=== PATIENT | female | born 1985 | race Caucasian/White ===

== ENCOUNTER → 2017-03-04 | Outpatient (REF) | payer OTHER ==
[~2017-03-04] MED LIST: ACET50TA PO; DOCU10CA PO; IBUP80TA PO; MOM30SS PO; PRIL20CA9 PO; TUMS500C PO; VITAPRTA PO
== END ==
LOC: M LAB REF 13:08
PROVIDERS: ATTEND Physician Assistant Medical
DX: N39.0 Urinary tract infection, site not specified (principal)

== ENCOUNTER 2017-05-02 14:21 | Emergency (ER) | payer OTHER ==
[~2017-05-02] VITALS: Ht 167.6 cm; Wt 113.6 kg
[~2017-05-02 14:21] MED LIST changes: -ADJU7MIS XX; -NAPR500T PO; -ORTHTAB15 PO
[2017-05-02 14:22] VITALS: BP 123/69
[2017-05-02] MEDS ORDERED: ORTHTAB15 PO (14:38)
[2017-05-02] MEDS ORDERED: NORCO, ANEXSIA 5/325MG TABLET (HYDROcodone/ACETAMINOPHEN) PO ONE (16:00)
[2017-05-02] MEDS ORDERED: NAPR500T PO (16:59)
[2017-05-02] MEDS ORDERED: ADJU7MIS XX (17:02)
--- NOTE | 2017-05-02 17:17 | REP ---
Right os calcis: Two views: History: Pain and swelling. Question spur. Findings: Axial and lateral views demonstrate plantar and Achilles calcaneal spurring. No erosive changes seen. Bones, joints, and soft tissues are otherwise unremarkable. Impression: Heel spurs. No erosive change seen. Signed by lEbert Souza MD 05/02/2017 05:48 P
== END 2017-05-02 17:15 | disposition home or self-care (01) ==
LOC: M ED 14:21
DX: M77.31 Calcaneal spur, right foot (principal)

== ENCOUNTER → 2017-05-02 | Outpatient (REF) | payer OTHER ==
[~2017-05-02] MED LIST changes: +ADJU7MIS XX; +NAPR500T PO; +ORTHTAB15 PO
== END ==
LOC: M LAB REF 18:31
PROVIDERS: ATTEND Advanced Practice Midwife
DX: Z12.4 Encounter for screening for malignant neoplasm of cervix (principal)

== ENCOUNTER 2017-09-13 10:06 | Emergency (ER) | payer OTHER ==
[2017-09-13] MEDS: BENZONATATE 100 MG CAP PO (10:30)
[2017-09-13] MEDS: IPRATROPIUM 0.5MG/ALBUTEROL 2.5MG INH SOL UD 3ML (DUONEB)(J7620) NEB (10:41)
== END 2017-09-13 11:46 | disposition home or self-care (01) ==
LOC: M ED 10:06
DX: J18.1 Lobar pneumonia, unspecified organism (principal); F43.10 Post-traumatic stress disorder, unspecified; F31.9 Bipolar disorder, unspecified; F84.0 Autistic disorder
CPT/HCPCS: 71020

== ENCOUNTER → 2018-04-15 | Outpatient (CLI) | payer OTHER | LOC: M RAD 06:12 | DX: Z32.01 Encounter for pregnancy test, result positive (principal) | CPT/HCPCS: 76801 ==

== ENCOUNTER → 2018-07-29 | Outpatient (CLI) | payer OTHER ==
[2018-07-29 17:51] LABS: HCG, SERUM QUANTITATIVE < 1.0 MIU/ML
== END ==
LOC: M SMT 13:48
DX: O20.0 Threatened abortion (principal)
CPT/HCPCS: 84702

== ENCOUNTER 2019-11-25 11:12 | Emergency (ER) | payer OTHER ==
[~2019-11-25] VITALS: Ht 167.6 cm; Wt 121.1 kg
[~2019-11-25 11:12] MED LIST changes: -ACET50TA PO; +ADJU7MIS XX; +IBUP-1114 PO; +MAPA500T2 PO; +NAPR-837 PO; +ORTH1TAB9 PO; +PRED10TA2 PO; +TESS100C PO; +VENTAER IN; +ZITHTAB PO
[2019-11-25] MEDS ORDERED: PREN29TA4 PO (11:17)
[2019-11-25 12:05] LABS: BASO % 0.3 % (0.0-1.0); EOS % 0.4 % (0.0-3.0); HEMATOCRIT 40.6 % (36.0-47.0); HEMOGLOBIN 13.8 g/dl (12.0-15.5); LYMPH % 25.4 % (24.0-44.0); MEAN CORPUSCULAR HEMOGLOBIN 32.7 pg (27.0-33.0); MEAN CORPUSCULAR VOLUME 96.2 fl (80.0-96.0); MONO # 0.4 10^3/uL (0.0-0.8); MONO % 4.7 % (0.0-5.0); NEUTROPHILS # 5.3 10^3/uL (1.5-8.5); NEUTROPHILS % 68.9 % (36.0-66.0); PLATELET COUNT, AUTOMATED 277 10^3/uL (150-450); RED BLOOD COUNT 4.22 10^6/uL (4.00-5.40); WHITE BLOOD COUNT 7.7 10^3/uL (4.0-10.0)
[2019-11-25 12:41] LABS: BLOOD UREA NITROGEN 11 MG/DL (7-18); CALCIUM LEVEL 9.5 MG/DL (8.5-10.1); CARBON DIOXIDE LEVEL 26 MEQ/L (21-32); CHLORIDE LEVEL 108 MEQ/L (98-107); CREATININE FOR GFR 0.75 MG/DL (0.55-1.30); GLOMERULAR FILTRATION RATE > 60.0 (>60); GLUCOSE, FASTING 103 MG/DL (70-100); HCG, SERUM QUANTITATIVE 354 MIU/ML; POTASSIUM SERUM 3.5 MEQ/L (3.5-5.1); SODIUM LEVEL 140 MEQ/L (136-145)
--- NOTE | 2019-11-25 13:22 | REP ---
Emergency first trimester obstetric sonography: History: Vaginal bleeding. 6 weeks 6 days by dates. Findings: Transabdominal and transvaginal scanning are performed. Uterine dimensions are 12.3 x 5.9 x 7.7 cm. Endometrial stripe is 2.2 cm thick. There is a gestational sac like structure in the endometrium without identifiable yolk sac or embryonic pole. By mean sac size diameter of 4.3 mm this would correspond with a 5 week 1 day gestational age estimate. No cul-de-sac fluid is seen. The left ovary measures 2.5 x 1.5 x 1.9 cm with normal Doppler flow and a normal appearance. The right ovary measures 5.1 x 2.6 x 3.4 cm. It has a normal appearing Doppler flow. There is a 4.3 x 2.3 x 3.2 cm anechoic cyst in the right ovary. No cul-de-sac fluid. Impression: Nonspecific findings. A gestational sac like structure 5 weeks 1 day size is seen in the endometrium without yolk sac or embryonic pole. viability cannot be confirmed. Clinical and possibly sonographic followup is advised. There is a 4.3 cm simple cyst in the right ovary. Electronically Signed by Elbert Souza MD 11/25/2019 04:50 P
[2019-11-25 13:46] VITALS: BP 138/97
== END 2019-11-25 13:48 | disposition home or self-care (01) ==
LOC: M ED 11:12
DX: O20.0 Threatened abortion (principal); O36.80X0 Pregnancy with inconclusive fetal viability, not applicable or unspecified; O34.81 Maternal care for other abnormalities of pelvic organs, first trimester; N83.291 Other ovarian cyst, right side; O99.341 Other mental disorders complicating pregnancy, first trimester; F43.10 Post-traumatic stress disorder, unspecified; F84.0 Autistic disorder; F31.9 Bipolar disorder, unspecified; Z3A.01 Less than 8 weeks gestation of pregnancy

== ENCOUNTER → 2019-11-27 | Outpatient (CLI) | payer OTHER ==
[~2019-11-27] MED LIST changes: +PREN29TA4 PO
== END ==
LOC: M LAB 10:01
PROVIDERS: ATTEND Advanced Practice Midwife
DX: O20.0 Threatened abortion (principal)

== ENCOUNTER → 2020-01-27 | Outpatient (REF) | payer OTHER | LOC: M PLALAB 12:10 | PROVIDERS: ATTEND Obstetrics & Gynecology | DX: Z32.01 Encounter for pregnancy test, result positive (principal) ==

== ENCOUNTER → 2020-02-10 | Outpatient (REF) | payer OTHER | LOC: M PLALAB 09:16 | PROVIDERS: ATTEND Obstetrics & Gynecology | DX: Z32.01 Encounter for pregnancy test, result positive (principal) ==

== ENCOUNTER → 2020-02-12 | Outpatient (CLI) | payer OTHER | LOC: M PLALAB 09:29 | PROVIDERS: ATTEND Obstetrics & Gynecology | DX: Z32.01 Encounter for pregnancy test, result positive (principal) ==

== ENCOUNTER → 2020-02-24 | Outpatient (REF) | payer OTHER ==
[2020-02-24 11:48] LABS: HEMATOCRIT 37.3 % (36.0-47.0); HEMOGLOBIN 12.7 g/dl (12.0-15.5); MEAN CORPUSCULAR HEMOGLOBIN 32.2 pg (27.0-33.0); MEAN CORPUSCULAR VOLUME 94.4 fl (80.0-96.0); PLATELET COUNT, AUTOMATED 255 10^3/uL (150-450); RED BLOOD COUNT 3.95 10^6/uL (4.00-5.40); WHITE BLOOD COUNT 6.5 10^3/uL (4.0-10.0)
[2020-02-24 12:42] LABS: HEPATITIS C VIRUS ABY INDEX 0.2 INDEX (<0.8); HIV 1&2 SCREEN CENTAUR NEGATIVE (NEGATIVE)
[2020-02-24 13:22] LABS: CHLAMYDIA DNA AMPLIFICATION NEGATIVE (NEGATIVE); GC DNA AMPLIFICATION NEGATIVE (NEGATIVE)
== END ==
LOC: M PLALAB 09:07
PROVIDERS: ATTEND Obstetrics & Gynecology
DX: Z3A.01 Less than 8 weeks gestation of pregnancy (principal)

== ENCOUNTER → 2020-03-25 | Outpatient (CLI) | payer OTHER ==
[~2020-03-25] MED LIST changes: +ESGI1TAB PO; +OMEP-218 PO
== END ==
LOC: M PLALAB 14:33
PROVIDERS: ATTEND Advanced Practice Midwife
DX: Z34.81 Encounter for supervision of other normal pregnancy, first trimester (principal); Z3A.00 Weeks of gestation of pregnancy not specified

== ENCOUNTER → 2020-05-16 | Outpatient (CLI) | payer OTHER ==
--- NOTE | 2020-06-10 15:02 | REP ---
COMPLETE OBSTETRICAL ULTRASOUND CLINICAL: Anatomical evaluation. TECHNIQUE: Transabdominal obstetrical ultrasound with color Doppler evaluation. COMPARISON: 11/25/2019 FINDINGS: Ultrasound examination demonstrates single live intrauterine in breech presentation. motion was identified by technologist. heart rate equals 140 beats per minute. Placenta noted posterofundally and grade 1 without evidence for placenta previa or abruption. Amniotic fluid volume is normal. Cervix measures 3 cm in length and appears closed. Gestational age by LMP 15 weeks 0 days with estimated date of delivery 01/03/2021. Gestational age by current measurements 19 weeks 6 days with estimated date of delivery 10/04/2020. BPD 45 mm, 19 weeks 5 days. HC 169 mm, 19 weeks 4 days. AC 144 mm, 19 weeks 6 days. FL 33 mm, 20 weeks 2 days. HL 30 mm, 20 weeks 0 days. Estimated weight 230 grams (91st percentile). Anatomical assessment demonstrates normal cisterna magna, spine, stomach, kidney/bladder, three vessel cord/cord insertion, facial features, and extremities. Limited evaluation of the heart and ventricular outflow tracts noted. IMPRESSION: Single live intrauterine in breech presentation demonstrating upper limits of normal estimated weight based on age. Limited evaluation of the four chamber heart and cardiac ventricular outflow tracts. Remainder of the anatomical assessment is complete and normal. MTDD
== END ==
LOC: M WHC 10:00
PROVIDERS: ATTEND Advanced Practice Midwife
DX: O32.1XX0 Maternal care for breech presentation, not applicable or unspecified (principal); Z3A.19 19 weeks gestation of pregnancy

== ENCOUNTER → 2020-06-10 | Outpatient (CLI) | payer OTHER ==
--- NOTE | 2020-06-14 14:36 | REP ---
OBSTETRIC SONOGRAPHY HISTORY: Supervision of , follow-up anatomy four chamber heart, face, and lips. FINDINGS: Scanning through the gravid uterus demonstrates a single live intrauterine gestation in a vertex lie. motion is observed and heart rate is recorded at 144 beats per minute. A right fundal grade 1 placenta is seen without evidence of previa or abruption. Amniotic fluid is subjectively normal. Closed cervical length is measured at 3.8 cm, viewed transabdominally. No extrauterine abnormalities observed. four chamber heart and facial views were achieved today and are felt to be unremarkable. No anomaly is seen. BIOMETRY CHART: BPD 5.7 cm 23 weeks 2 days Head circumference 21.1 cm 23 weeks 1 day Abdominal circumference 18.7 cm 23 weeks 3 days Femur length 4.7 cm 25 weeks 5 days Humeral length 4.1 cm 24 weeks 5 days AC/HC ratio 1.12 Normal Cephalic index 0.75 Normal Estimated weight 681 grams, 1 pound 8 ounces, greater than 97th percentile for 22 weeks 4 days. IMPRESSION: Viable single intrauterine gestation at 24 weeks 1 day by todays composite sonographic criteria. Estimated date of delivery (CAROLINE) by todays sonography 09/29/2020. In combination with prior study, anatomic survey is felt to be complete. MTDD
== END ==
LOC: M WHC 10:28
PROVIDERS: ATTEND Advanced Practice Midwife
DX: Z34.82 Encounter for supervision of other normal pregnancy, second trimester (principal); Z36.2 Encounter for other antenatal screening follow-up; Z3A.24 24 weeks gestation of pregnancy

== ENCOUNTER 2020-06-16 14:58 | Outpatient (CLI) | payer OTHER ==
[~2020-06-16] VITALS: Ht 167.6 cm; Wt 133.1 kg
[~2020-06-16 14:58] MED LIST changes: -ESGI1TAB PO; -OMEP-218 PO
[2020-06-16] MEDS ORDERED: MAPA500T2 PO (15:15)
[2020-06-16 15:22] VITALS: BP 115/56
[2020-06-16 16:24] LABS: APPEARANCE, URINE CLEAR (CLEAR); BACTERIA, URINE AUTO NEGATIVE (NEGATIVE); BILIRUBIN, URINE AUTO NEGATIVE (NEGATIVE); BLOOD, URINE BLOOD NEGATIVE (NEGATIVE); COLOR, URINE YELLOW (YELLOW); GLUCOSE, URINE (UA) AUTO NEGATIVE (NEGATIVE); KETONE, URINE AUTO NEGATIVE (NEGATIVE); LEUKOCYTE ESTERASE, URINE AUTO NEGATIVE (NEGATIVE); MUCUS, URINE SMALL (NEGATIVE); NITRITE, URINE AUTO NEGATIVE (NEGATIVE); PROTEIN, URINE AUTO NEGATIVE (NEGATIVE); RBC, URINE AUTO 1 /HPF (0-3); SPECIFIC GRAVITY URINE AUTO 1.005 (1.002-1.035); SQUAMOUS EPITHELIAL CELL UR AU 1 /HPF (0-6); UROBILINOGEN, URINE AUTO 0.2 mg/dL (0.0-2.0); WBC, URINE AUTO 0 /HPF (0-3)
--- NOTE | 2020-06-16 16:48 | IPNPDOC ---
Text Note Date of Service The patient was seen on 06/16/20. NOTE Triage Note Terri is a 34yo with SIUP at 23w3d presenting for abdominal discomfort, question contractions. She had a couple episodes of nausea since last night, but no vomiting. No diarrhea. Took some gas X for gas pains. No vaginal bleeding, no loss of fluid. Good movement. No f/c/CP/SOB. No painful urination, no abnormal vaginal discharge or odor/irritation. Her hx is significant for pre-term labor at 22wk with delivery of unknown etiology both preceded by and followed by normal term deliveries. Vitals wnl, afeb General: WDWN, NAD, resting comfortably, obese Abdomen: soft, gravid, NTTP Extremities: no edema of BLE Cat I FHRT with +accels, mod jodi, no decels [place]: rare possible ctx SSE: NEFG, normal physiologic appearing vaginal discharge in the vaginal vault, unable to visualize cervix due to sidewalls obscuring. Swab obtained. SCE: internal os closed/thick/high ERIC/WP: no clue cells, trichomonas, budding yeast or hyphae Urinalysis: wnl A/P: Terri is a 34yo with SIUP at 23w3d with NO e/o pre-term labor. Likely abdominal discomfort related to GI cause such as bloating/gas. Reassuring status. -Safe for discharge home -Increase hydration -Keep next routine OB appt on Jun -Discussed return precautions Zaida Willard MD VS,Ezequiel, I+O VSEzequiel, I+O Vital Signs Date Time Temp Pulse Resp B/P (MAP) Pulse Ox O2 Delivery O2 Flow Rate FiO2 06/16/20 15:22 98.2 93 115/56 (75) Room Air Zaida Willard MD Jun 16, 2020 16:48
== END 2020-06-16 16:40 | disposition home or self-care (01) ==
LOC: M LDO 14:58
PROVIDERS: ATTEND Obstetrics & Gynecology
DX: O26.892 Other specified pregnancy related conditions, second trimester (principal); R14.0 Abdominal distension (gaseous); Z87.51 Personal history of pre-term labor; Z3A.23 23 weeks gestation of pregnancy

== ENCOUNTER 2020-07-25 21:48 | Outpatient (CLI) | payer OTHER ==
[~2020-07-25] VITALS: Ht 167.6 cm; Wt 299.4 kg
[2020-07-25 22:01] VITALS: BP 121/72
[2020-07-25] MEDS ORDERED: TUMS500C PO (22:15)
--- NOTE | 2020-07-25 23:09 | IPNPDOC ---
Text Note Date of Service The patient was seen on 07/25/20. NOTE Subjective: Terri is a 34 y/o G 12 [id number] at 29.1 weeks EGA by 1st trimester U/S at 7.2 weeks (02/24/2020). She reports to L&D for c/o lingering headache for the last three days and "I just feel off". Describes headache as throbbing and squeezing over whole head. Headache causing some spotting in her vision. Reports heartburn that is slightly managed with Tums, has tried Pepcid, but reports Pepcid makes her nauseated. Denies contractions, vaginal bleeding, LOF. Reports active FM. Medical: Autism, Anxiety Surgical: 2010 D&C Social: Nonsmoker, denies drug and alcohol use. Denies being physically hurt or forced to have intercourse. 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 No STIs, Last PAP 05/02/17 Normal Objective: VSS, see below, Pulse 95 when checked again. GENERAL: Alert and oriented. Well appearing. RESPIRATORY: Regular rate, no accessory muscle use. ABDOMEN: Soft, nontender. No UC on toco, none palpated. EXTREMITIES: Mild Bilateral lower edema, non pitting. DTRS +2, no clonus. Assessment: IUP at 29.1 weeks, headache, not in labor, no elevated BPs. Plan: Percocet 1 tab now, Bicitra PO now, NST and PO hydrate. Esgic and Omeprazole sent to pharmacy. Reviewed danger signs to report, access to care, labor precautions. Reports that her headache is much improved with Percocet and she is ready to go home to further hydrate with PO fluids and rest. Discharge home, reports she has someone to drive her home. VS,Fishbone, I+O VS, Fishbone, I+O Vital Signs Date Time Temp Pulse Resp B/P (MAP) Pulse Ox O2 Delivery O2 Flow Rate FiO2 07/25/20 22:01 97.4 115 18 121/72 (88) 98 Room Air ARVIN REYNAGA CNM Jul 25, 2020 23:09
[2020-07-25] MEDS ORDERED: PERCOCET 5MG/325MG TAB PO ONE (23:15)
[2020-07-25] MEDS ORDERED: BICITRA 30ML SOLN UDC PO ONE (23:15)
[2020-07-26] MEDS ORDERED: ESGI1TAB PO (01:30)
[2020-07-26] MEDS ORDERED: OMEP-218 PO (01:32)
== END 2020-07-26 00:30 | disposition home or self-care (01) ==
LOC: M LDO 21:48
PROVIDERS: ATTEND Advanced Practice Midwife
DX: O99.353 Diseases of the nervous system complicating pregnancy, third trimester (principal); R51.9 Headache, unspecified; Z3A.29 29 weeks gestation of pregnancy; Z80.49 Family history of malignant neoplasm of other genital organs

== ENCOUNTER → 2020-07-28 | Outpatient (REF) | payer OTHER ==
[~2020-07-28] MED LIST changes: +ESGI1TAB PO; +OMEP-218 PO
[2020-07-28 15:41] LABS: HEMATOCRIT 30.8 % (36.0-47.0); HEMOGLOBIN 9.9 g/dl (12.0-15.5); MEAN CORPUSCULAR HEMOGLOBIN 31.2 pg (27.0-33.0); MEAN CORPUSCULAR HGB CONC 32.1 g/dl (32.0-36.5); MEAN CORPUSCULAR VOLUME 97.2 fl (80.0-96.0); PLATELET COUNT, AUTOMATED 264 10^3/uL (150-450); RED BLOOD COUNT 3.17 10^6/uL (4.00-5.40); WHITE BLOOD COUNT 8.7 10^3/uL (4.0-10.0)
== END ==
LOC: M PLALAB 11:18
PROVIDERS: ATTEND Advanced Practice Midwife
DX: O09.43 Supervision of pregnancy with grand multiparity, third trimester (principal); Z3A.00 Weeks of gestation of pregnancy not specified

== ENCOUNTER 2020-09-12 18:02 | Outpatient (CLI) | payer OTHER ==
[~2020-09-12] VITALS: Ht 167.6 cm; Wt 135.8 kg
[2020-09-12 18:24] VITALS: BP 133/65
[2020-09-12 18:36] VITALS: BP 127/100
[2020-09-12 18:38] VITALS: BP 131/60
[2020-09-12 19:47] LABS: APPEARANCE, URINE HAZY (CLEAR); BACTERIA, URINE AUTO NEGATIVE (NEGATIVE); BILIRUBIN, URINE AUTO NEGATIVE (NEGATIVE); BLOOD, URINE BLOOD NEGATIVE (NEGATIVE); COLOR, URINE YELLOW (YELLOW); GLUCOSE, URINE (UA) AUTO NEGATIVE (NEGATIVE); KETONE, URINE AUTO 1+ mg/dL (NEGATIVE); LEUKOCYTE ESTERASE, URINE AUTO NEGATIVE (NEGATIVE); MUCUS, URINE SMALL (NEGATIVE); NITRITE, URINE AUTO NEGATIVE (NEGATIVE); PROTEIN, URINE AUTO 1+ mg/dL (NEGATIVE); RBC, URINE AUTO 0 /HPF (0-3); SPECIFIC GRAVITY URINE AUTO 1.017 (1.002-1.035); SQUAMOUS EPITHELIAL CELL UR AU 2 /HPF (0-6); UROBILINOGEN, URINE AUTO 0.2 mg/dL (0.0-2.0); WBC, URINE AUTO 0 /HPF (0-3)
--- NOTE | 2020-09-12 20:28 | IPNPDOC ---
Text Note Date of Service The patient was seen on 09/12/20. NOTE Outpatient Subjective: Terri is a 35 y/o at 36.0 weeks by EDC 10/10/20 by 1st trimester ultrasound on 02/24/20 at 7.2weeks. She began care at [facility] in the first trimester. She presents to Labor and Delivery tonight with a c/o leaking fluid, starting yesterday morning. Reports clear fluid but she is "unsure if it's urine or amniotic fluid." Reports irregular contractions that she primarily feels in her vagina and "sometimes they wrap up the sides and low back". Reports back pain that "feels like muscle pain." Denies odor to vaginal secretions. Denies vaginal bleeding. Reports active movement. Denies headache, visual changes, epigastric pain, nausea. Reports decreased appetite today, "I haven't really eaten anything today." Given soup and toast, and water and encouraged to eat and drink. Medical hx.: Autism, anxiety Surgical hx.: D&C 2011 Obstetrical: SAB x 4 with 1 19.4 week demise, x6 (2005,2006, 2008, 2009, 2011, 2014) Family hx.: Mother at 33 y/o Cervical Cancer, siblings with autism, 1 child with autism. Social hx.: Nonsmoker, denies alcohol and illicit drug use. Objective: General: Alert and Oriented x3. Respiratory: Regular rate, no accessory muscle use. Abdomen: Soft, nontender, not distended. Uterine: Soft at rest, mild contractions on palpation. Bear shows contractions every 3-5 minutes, lasting 60 seconds or less. Fetus: 135bpm baseline, moderate variability, positive accelerations, no decelerations, Category 1 FHT. Pelvic: SVE 1-2/50/-3 on arrival with no change 2.5hrs later by NABILA Field. Speculum exam shows vaginal waldrop with good rugae, pink, white vaginal secretions. Cervix pink, no fluid leaking from os with valsalva. Negative nitrazine. Negative ferning. Wet Prep: Ph 4.5, negative whiff test, No clue cells seen. No trichomonads. Yeast buds seen throughout slide. GBS collected. Extremities: Mild edema, no calf tenderness. Bedside U/S: Vertex presentation, SHERYL 13.3, active movement seen Assessment: IUP at 36.0weeks. AMA. Category 1 FHT. Not in active labor. Not SROM. Plan: Urinalysis, see results below. NST Regular Diet, PO hydrate. GBS collected and sent. Terbutaline 0.25mg SQ. x1 Diflucan 150mg x1 tablet now. Flexeril 5mg PO x1 for muscle aching. Tylenol 1000mg PO x1 for muscle aching. Patient Discharge home. She states she feels like her pain is muscular and she would like to go home and try and sleep. Reviewed access to care, kick count, labor signs and danger signs to report. She is to follow-up in the office next week or sooner if she needs. VS,Fishbone, I+O VS, Fishbone, I+O Vital Signs Date Time Temp Pulse Resp B/P (MAP) Pulse Ox O2 Delivery O2 Flow Rate FiO2 09/12/20 18:38 96 18 131/60 (83) 09/12/20 18:24 98.1 Item Value Date Time Urine Color YELLOW 09/12/201921 Urine Appearance HAZY 09/12/201921 Urine pH 6.0 UNITS 09/12/201921 Urine Specific [place] 1.017 09/12/201921 Urine Protein 1+ mg/dL H 09/12/201921 Urine Glucose (Auto)(UA) NEGATIVE mg/dL 09/12/201921 Urine Ketones (Auto) 1+ mg/dL H 09/12/201921 Urine Blood NEGATIVE 09/12/201921 Urine Nitrite NEGATIVE 09/12/201921 Urine Bilirubin NEGATIVE 09/12/201921 Urine Urobilinogen 0.2 mg/dL 09/12/201921 Urine Leukocyte Esterase (Auto) NEGATIVE 09/12/201921 Urine WBC (Auto) 0 /HPF 09/12/201921 Urine RBC (Auto) 0 /HPF 09/12/201921 Urine Hyaline Casts (Auto) 0 /LPF 09/12/201921 Urine Bacteria (Auto) NEGATIVE 09/12/201921 Urine Squamous Epithelial Cells 2 /HPF 09/12/201921 Urine Mucus (Auto) SMALL 09/12/201921 ARVIN REYNAGA CNM Sep 12, 2020 20:04
[2020-09-12] MEDS ORDERED: TERBUTALINE SULFATE 1 MG/ML VIAL (J3105) SC ONE (20:45)
[2020-09-12] MEDS ORDERED: FLUCONAZOLE 50MG TABLET PO ONE (21:30)
[2020-09-12] MEDS ORDERED: CYCLOBENZAPRINE 5MG TABLET PO ONE (22:00)
[2020-09-12] MEDS ORDERED: ACETAMINOPHEN 500 MG TAB PO ONE (22:00)
== END 2020-09-13 00:50 | disposition home or self-care (01) ==
LOC: M LDO 18:02
PROVIDERS: ATTEND Advanced Practice Midwife
DX: O26.893 Other specified pregnancy related conditions, third trimester (principal); Z3A.36 36 weeks gestation of pregnancy
CPT/HCPCS: 59025; 81001; 87081; 87086; 96372; J3105

== ENCOUNTER → 2020-09-27 | Outpatient (CLI) | payer OTHER | LOC: M LAB 07:16 | PROVIDERS: ATTEND Advanced Practice Midwife | DX: O99.810 Abnormal glucose complicating pregnancy (principal) ==

== ENCOUNTER 2020-10-08 21:14 | Inpatient (IN) | payer OTHER ==
[~2020-10-08] VITALS: Ht 167.6 cm; Wt 128.7 kg
[2020-10-08 21:34] VITALS: BP 119/70
[2020-10-08 23:22] VITALS: BP 140/70
[2020-10-09] VITALS (53 sets, daily range): BP systolic 97–146; BP diastolic 42–86
[2020-10-09] MEDS ORDERED: LR 1,000 ML IV SCH (01:41)
[2020-10-09] MEDS ORDERED: PROMETHAZINE INJ 25 MG/ML VIAL (J2550) IV PRN (01:45)
[2020-10-09] MEDS ORDERED: BUTORPHANOL 2 MG/ML INJ (J0595) IV ONE ×2 (01:45→05:30)
[2020-10-09] MEDS ORDERED: OXYTOCIN DRIP 30 UNITS in IV 1 EA IV SCH ×2 (01:45→15:00)
[2020-10-09 02:34] LABS: HEMATOCRIT 31.5 % (36.0-47.0); HEMOGLOBIN 10.7 g/dl (12.0-15.5); MEAN CORPUSCULAR HEMOGLOBIN 31.6 pg (27.0-33.0); MEAN CORPUSCULAR VOLUME 92.9 fl (80.0-96.0); PLATELET COUNT, AUTOMATED 263 10^3/uL (150-450); RED BLOOD COUNT 3.39 10^6/uL (4.00-5.40); WHITE BLOOD COUNT 8.2 10^3/uL (4.0-10.0)
[2020-10-09] MEDS ORDERED: FENTANYL 2MCG/ML ROPIVACAINE 0.2% IN 0.9% NACL 100ML IVBAG As Ordered ONE (08:37)
[2020-10-09] MEDS ORDERED: REFRIGERATOR IV KEYS XX PRN (09:15)
[2020-10-09] MEDS ORDERED: FENTANYL/ROPIVACAINE/NACL BAG 100 ML EPIDURAL SCH (09:15)
[2020-10-09] MEDS ORDERED: diphenhydrAMINE 50MG/ML VIAL (J1200) IV PRN ×3 (09:15→16:15)
[2020-10-09] MEDS ORDERED: EPIDURAL COMMENT XX SCH (09:15)
[2020-10-09] MEDS ORDERED: LACTATED RINGER'S 1000 ML IV PRN (09:15)
[2020-10-09] MEDS ORDERED: ONDANSETRON 4MG/2ML VIAL IV PRN ×4 (09:15→16:15)
[2020-10-09] MEDS ORDERED: NALOXONE INJ 0.4MG/1ML VIAL (J2310 PER 1MG) IV PRN ×3 (09:15→15:00)
[2020-10-09] MEDS ORDERED: EPIDURAL/PCA KEYS XX PRN (09:15)
--- NOTE | 2020-10-09 09:38 | HPEPDOC ---
Obstetrical History & Physical General Date of Admission Oct 09, 2020 at 01:24 History of Present Illness 35yo at 39w6d presents with c/o contractions. Reports active movement. No vaginal bleeding or LOF Chief Complaint: Contractions, term Information Provided By: Patient Age: 35 : 12 Term: 6 Abortions: 5 Care Care: Good Care Dating Final EDC: Oct 10, 2020 Final EDC by: 1st trimester (US) EGA at Admission: 39 Past Medical History Past Obstetrical History #1: Past Obstetrical History: Primgravida Date of Delivery: Oct 11, 2005 Type of Delivery: Spontaneous Vaginal Del. Sex of : Female Complications: Yes Past Obstetrical History #2: Past Obstetrical History: Multigravida Date of Delivery: Oct 11, 2006 Type of Delivery: Spontaneous Vaginal Del. Sex of Infant: Female Complications: No Past Obstetrical History #3: Past Obstetrical History: Multigravida Date of Delivery: Nov 13, 2011 Type of Delivery: Spontaneous Vaginal Del. Sex of : Female Past Obstetrical History #4: Past Obstetrical History: Multigravida Date of Delivery: Feb 28, 2010 Type of Delivery: Spontaneous Vaginal Del. Sex of : Male Past Obstetrical History #5: Past Obstetrical History: Multigravida Date of Delivery: Oct 28, 2007 Type of Delivery: Spontaneous Vaginal Del. Sex of Infant: Female Past Obstetrical History #6: Past Obstetrical History: Multigravida Date of Delivery: Jun 07, 2015 Type of Delivery: Spontaneous Vaginal Del. 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 pertinent history Past Medical History Medical History Autistic Surgical History: Dilatation and Curettage Family History Significant Family History: Cancer (mother from cervical cancer) Social History Family situation: Spouse/partner home Psychosocial History: No pertinent psych hx * Smoker: non-smoker Alcohol: Denies Drugs: denies Allergies Coded Allergies: No Known Allergies (Verified , 09/12/20) Medications Scheduled Calcium Carbonate (Tums) 200 Mg Tab.chew, 2 TAB PO QID for cough and congestion Prenat 115/Iron Fum/Folic/Dss ( 19 Tablet) 1 Each Tablet, 1 TAB PO DAILY Scheduled PRN Butalb/Acetaminophen/Caffeine (Esgic 50-325-40 mg Tablet) 1 Each Tablet, 1 TAB PO Q6HP PRN for MIGRAINE Miscellaneous Medications Acetaminophen (Mapap) 500 Mg Tablet, 1,000 MG PO Physical Examination Physical Examination GENERAL: Alert and oriented times three. BREAST: . ABDOMEN: Gravid and non-tender to touch. FETUS: Is vertex (VTX) by sterile vaginal examination (SVE), fetus is vertex (VTX) by [place]. HEART RATE: Regular rate and rhythm. LUNGS: Clear to auscultation (CTA). Vital Signs/I&O Vital Signs Date Time Temp Pulse Resp B/P (MAP) Pulse Ox O2 Delivery O2 Flow Rate FiO2 10/09/20 06:43 96 18 111/64 (80) 10/09/20 05:13 98.4 Laboratory Data 24H LABS Laboratory Tests 2 10/09/20 01:27: Serology Scanned Report Hepatitis B Testing 10/09/20 02:27: Nucleated Red Blood Cells % (auto) 0.0 CBC/BMP Laboratory Tests 10/09/20 02:27 Pertinent Laboratoy Data Blood Type: O+ RBC Antibody Screen: Negative HIV: Negative Hepatitis B: Negative Hepatitis C: Negative Rapid Plasma Reagin: Nonreactive Rubella: Immune Chlamydia/Gonorrhea: Negative Group B Streptococcus: Negative Anatomy Ultrasound Normal Anatomy: Yes Placenta Previa: Yes Vaginal Examination Dilation: 3 cm Effacement: 70% Station: -3 Cervical Consistency: Medium Cervical Position: Middle Presentation: Cephalic presentation Assessment Variability: Moderate Accelerations: Positive Tocometer Contractions: Yes Frequency: regular Assessment/Plan Assessment 35-year-old 12 para 6 at 39 weeks and 6 days labor Reassuring status Plan Admit and orient. 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 Diet: Clears. Group B Streptococcus (GBS) negative. Labs and intravenous (IV) per unit protocol. Counseled on Pitocin and induction of labor (IOL). Anticipate normal spontaneous delivery (). C-S as appropriate. PENG ESPANA MD. Oct 09, 2020 09:38
[2020-10-09] MEDS: ePHEDrine SULFATE 25 MG/5 ML(5MG/ML) SYRINGE IV PRN ×2 (09:47→10:43)
[2020-10-09] MEDS ORDERED: CARBOPROST TROMETHAMINE 250 MCG/ML AMP As Ordered ONE (11:24)
[2020-10-09] MEDS ORDERED: TRANEXAMIC ACID 100 MG/ML 10ML VIAL As Ordered ONE (11:25)
[2020-10-09] MEDS ORDERED: CARBOPROST TROMETHAMINE 250 MCG/ML AMP IM ONE (11:30)
[2020-10-09] MEDS ORDERED: METHYLERGONOVINE MALEATE 0.2 MG/ML VIAL (J2210) IM ONE (11:30)
--- NOTE | 2020-10-09 11:42 | IPNPDOC ---
Obstetrical Progress Note Date of Service Oct 09, 2020 Subjective Comfortable after epidural Objective Vital Signs Date Time Temp Pulse Resp B/P (MAP) Pulse Ox O2 Delivery O2 Flow Rate FiO2 10/09/20 11:09 59 18 128/54 (78) 10/09/20 07:12 98.4 Assessment Variability: Moderate Heart Rate Tracing: Category I Tocometer Contractions: Yes Frequency: regular Sterile Vaginal Examination Dilation: 3 cm Effacement (%): 70% Station: -3 Cervical Position: Posterior Postion/Presentation: Cephalic presentation (AROM, bloody.) Assessment and Plan Age: 35 : 12 Term: 6 Status: Reassuring Group B Streptococcus: Negative Anticipate: Vaginal Delivery PENG ESPANA MD. Oct 09, 2020 11:42
[2020-10-09] MEDS ORDERED: ceFAZolin 2 GM/D5W 50 ML IV BAG (J0690 PER 500MG) As Ordered ONE (14:16)
[2020-10-09] MEDS ORDERED: BICITRA 30ML SOLN UDC As Ordered ONE (14:16)
[2020-10-09] MEDS ORDERED: AZITHROMYCIN INJ 500MG VIAL (J0456 PER 500MG) As Ordered ONE (14:20)
[2020-10-09] MEDS ORDERED: OXYTOCIN 30 UNITS IN 0.9% NaCl 500ML IV BAG (J2590) As Ordered ONE ×2 (14:23→16:26)
[2020-10-09] MEDS ORDERED: MORPHINE PRES-FREE INJ 10 MG/10 ML VIAL (J2274) As Ordered ONE (14:24)
[2020-10-09] MEDS ORDERED: LIDOCAINE 2% W/EPINEPHRINE 20ML VIAL **PRES FREE As Ordered ONE (14:24)
--- NOTE | 2020-10-09 14:36 | IPNPDOC ---
Obstetrical Progress Note Date of Service Oct 09, 2020 Subjective Patient with adequate contraction and has been without cervical change. Has had increasing bleeding and pain since AROM. Discussed proceeding with 1LTCS vs caution further augmentation of labor/. After discussion patient has express all concerns and desires to proceed with 1LTCS. She has also expressed satisfied parity with undesired fertility during the and desires BTL with c/s. Objective Vital Signs Date Time Temp Pulse Resp B/P (MAP) Pulse Ox O2 Delivery O2 Flow Rate FiO2 10/09/20 11:09 59 18 128/54 (78) 10/09/20 07:12 98.4 Assessment Heart Rate Tracing: Category II Tocometer Contractions: Yes Frequency: regular Sterile Vaginal Examination Dilation: 3 cm Effacement (%): 70% Station: -3 Postion/Presentation: Cephalic presentation Assessment and Plan Anticipate: Section PENG ESPANA MD. Oct 09, 2020 14:36
[2020-10-09] MEDS ORDERED: BICITRA 30ML SOLN UDC PO ONE (14:45)
[2020-10-09] MEDS ORDERED: MEASLES,MUMPS,RUBELLA VACCINE INJ (MMR-II) (90707) SC SCH (14:45)
[2020-10-09] MEDS ORDERED: PERCOCET 5MG/325MG TAB PO PRN (14:45)
[2020-10-09] MEDS ORDERED: MOM 30ML SUSPENSION UDC PO PRN (14:45)
[2020-10-09] MEDS ORDERED: ceFAZolin SOD 2 GM in IV 1 EA IV ONE (14:45)
[2020-10-09] MEDS ORDERED: RHOGAM 300 MCG (1500 IU) INJ (J2790) IM SCH (14:45)
[2020-10-09] MEDS ORDERED: METOCLOPRAMIDE INJ 10MG/2ML VIAL (J2765 PER 1) As Ordered ONE (14:48)
[2020-10-09] MEDS ORDERED: METOCLOPRAMIDE INJ 10MG/2ML VIAL (J2765 PER 1) IV PRN (15:00)
[2020-10-09] MEDS ORDERED: KETOROLAC 60MG 2ML VIAL As Ordered ONE (15:04)
[2020-10-09] MEDS ORDERED: AZITHROMYCIN INJ 500 MG, VIAL MATE ADAPTER 1 EACH in D5W 250 ML IV ONE (15:15)
[2020-10-09] MEDS ORDERED: MEPERIDINE 50 MG/ML 1ML VIAL (J2175) As Ordered ONE (15:45)
[2020-10-09] MEDS ORDERED: fentaNYL 100 MCG/2 ML INJECTION (J3010) As Ordered ONE (16:13)
[2020-10-09] MEDS ORDERED: HYDROMORPHONE HCL 0.5 MG/ 0.5 ML SYRINGE (J1170 PER 1) IV PRN (16:15)
[2020-10-09] MEDS ORDERED: oxyCODONE 5MG TAB PO PRN (16:15)
[2020-10-09] MEDS ORDERED: MEPERIDINE INJ 25 MG/ML VIAL (J2175) IV PRN (16:15)
[2020-10-09] MEDS: fentaNYL 100 MCG/2 ML INJECTION (J3010) IV PRN ×2 (16:18→16:30)
[2020-10-09] MEDS: LR 1,000 ML IV SCH ×2 (16:44→22:59)
[2020-10-09] MEDS ORDERED: oxyCODONE 5MG TAB As Ordered ONE (16:59)
[2020-10-09] MEDS: DOCUSATE SODIUM 100MG CAPSULE PO SCH (20:45)
[2020-10-09] MEDS: KETOROLAC 30 MG/ML 1ML VIAL IV SCH (20:45)
--- NOTE | 2020-10-09 22:37 | ROOPDOC ---
[facility] Report Of Operation Report of Operation DATE OF PROCEDURE: 10/09/20 SURGEON: Delilah Chavez M.D. BAND SEWER: Manuel Haq M.D. ( essential for tissue retractions, exposure and delivery of ) PROCEDURE: Primary section with Bilateral [place] tubal ligation PREOPERATIVE DIAGNOSIS: 1.Arrest of dilation 2.Satisfied parity with undesired fertility POSTOPERATIVE DIAGNOSIS: 1.Arrest of dilation 2. Satisfied parity with undesired fertility ANESTHESIA: Epidural ESTIMATED BLOOD LOSS: 700 mL URINE OUTPUT: 100 mL INTRAVENOUS FLUIDS: 1000 mL of lactated Ringer's solution PREOPERATIVE ANTIBIOTICS:. 2 g of Ancef and 500mg azithromycin OPERATIVE FINDINGS: Liveborn female infant, Apgars 8 and 9. Weight 3700 g or 8 lbs. 3 oz. SPECIMENS: Bilateral segments of fallopian tubes DESCRIPTION OF PROCEDURE: After informed consent was obtained and written consent was reviewed. The patient was brought to the operating room. She was then placed in the supine position with a left lateral tilt. [place] catheter was placed and to gravity. Patient was then prepped and draped in the normal sterile fashion. A timeout operating room was performed identifying the patient, procedure be performed as well as drug allergies. Anesthesia was tested and deemed to be adequate. Pfannenstiel skin incision was made and this was carried down to the underlying rectus fascia. The fascia was then scored and this incision was extended bilaterally. The fascia was then dissected off the underly ing rectus muscle superiorly and inferiorly. The rectus muscles were then in the midline. The peritoneum is then entered. Vesicouterine peritoneum was then tented and excised and a bladder flap was created. Mobius retractor was then placed. Next, a curvilinear incision was then made in the lower uterine segment. The head was brought to the level of the incision atraumatically and delivered along the shoulders and corpus. The cord was clamped x2. The infant was brought over to the warmer with a good cry. Placenta was drained and delivered grossly intact. The uterus was cleared of all clots and debris and the uterine incision was then closed using 0 Vicryl in a running locking fashion followed second layer of 0 Vicryl for imbrication. Attention was then turned to a bilateral [place] tubal ligation. A window was created in the right mesosalpinx. This area was doubly ligated with 3-0 chromic and was excised with good hemostasis noted. In a similar fashion, the left fallopian tube was placed on traction. A window was created in the mesosalpinx. This area was doubly ligated with 3-0 chromic and was excised, and hemostasis was noted. The abdomen suctioned. Surgical sites reinspected and noted be hemostatic. The retractor was then removed. The anterior peritoneum was then reapproximated with 3-0 Vicryl. The rectus muscles were reapproximated 3-0 Vicryl. The fascia was th en closed using 0 Vicryl in a running nonlocking fashion. The subcutaneous tissues was then irrigated and suctioned. Subcutaneous tissue was reapproximated using 3-0 Vicryl. Several subdermal stitch is placed using 3-0 Vicryl and the skin was closed with 4-0 Monocryl and subcuticular fashion. This incision was then cleaned and dried and was dressed. The patient was then taken to recovery in stable condition. All counts were correct. Mom has decided to name the , Toyin. My surgical corsetier Dr. Haq played in an essential role during the operation. He assisted with tissue identification retraction, delivery of the , as well as wound closure. DELILAH CHAVEZ MD. Oct 09, 2020 22:37
[2020-10-10] MEDS ORDERED: LR 500 ML IV ONE (00:45)
[2020-10-10 02:00] VITALS: BP 114/61
--- NOTE | 2020-10-10 02:37 | IPNPDOC ---
Progress Note Date of Service: Oct 10, 2020 Day#: 1 Progress Note SUBJECT: Doing well without complaints. Ambulating, and pain is well-controlled. Reports minimal lochia. Urine output has been marginal and Herron still in place OBJECTIVE: VITAL SIGNS: Within normal limits, afebrile. Alert and oriented times three. Abdomen: Fundus firm at U-2. Soft, NTTP. Incision: dressed Ext: neg calf tenderness. ASSESSMENT: /postoperative day #1 status post delivery. Recovering in stable condition. PLAN: 1. Continue routine /postoperative care 2. Discharge plans for tomorrow VS, I&O, 24H, Fishbone Vital Signs/I&O Vital Signs Date Time Temp Pulse Resp B/P (MAP) Pulse Ox O2 Delivery O2 Flow Rate FiO2 10/10/20 02:00 97.7 79 18 114/61 (78) 98 Room Air I&O- Last 24 Hours up to 6 AM 10/10/20 06:00 Intake Total 4057.7 ml Output Total 1775 ml Balance 2282.7 ml PENG ESPANA MD. Oct 10, 2020 02:37
[2020-10-10] MEDS: KETOROLAC 30 MG/ML 1ML VIAL IV SCH ×2 (02:43→08:40)
[2020-10-10] MEDS ORDERED: LR 1,000 ML IV ONE (05:45)
[2020-10-10 06:00] VITALS: BP 109/56
[2020-10-10 08:04] LABS: HEMATOCRIT 26.8 % (36.0-47.0); HEMOGLOBIN 8.8 g/dl (12.0-15.5); MEAN CORPUSCULAR HEMOGLOBIN 31.1 pg (27.0-33.0); MEAN CORPUSCULAR HGB CONC 32.8 g/dl (32.0-36.5); MEAN CORPUSCULAR VOLUME 94.7 fl (80.0-96.0); PLATELET COUNT, AUTOMATED 204 10^3/uL (150-450); RED BLOOD COUNT 2.83 10^6/uL (4.00-5.40); WHITE BLOOD COUNT 8.6 10^3/uL (4.0-10.0)
[2020-10-10] MEDS: DOCUSATE SODIUM 100MG CAPSULE PO SCH ×2 (08:19→20:50)
[2020-10-10] MEDS: PRENATAL VITAMINS CHEWABLE TABLET PO SCH (08:19)
[2020-10-10 10:00] VITALS: BP 114/55
[2020-10-10] MEDS: SIMETHICONE 80 MG CHEW TAB PO PRN ×2 (12:19→20:50)
[2020-10-10 13:57] VITALS: BP 121/58
[2020-10-10] MEDS: PERCOCET 5MG/325MG TAB PO PRN (14:23)
[2020-10-10] MEDS: IBUPROFEN 800 MG TAB PO SCH (17:29)
[2020-10-10 22:00] VITALS: BP 92/61
[2020-10-11] MEDS: IBUPROFEN 800 MG TAB PO SCH ×2 (00:17→09:30)
[2020-10-11 02:00] VITALS: BP 113/56
[2020-10-11 06:00] VITALS: BP 101/53
[2020-10-11] MEDS: SIMETHICONE 80 MG CHEW TAB PO PRN (06:41)
[2020-10-11] MEDS: PRENATAL VITAMINS CHEWABLE TABLET PO SCH (07:32)
[2020-10-11] MEDS: PERCOCET 5MG/325MG TAB PO PRN ×2 (07:33→13:35)
[2020-10-11] MEDS: DOCUSATE SODIUM 100MG CAPSULE PO SCH (07:33)
--- NOTE | 2020-10-11 09:27 | IPNPDOC ---
Progress Note Date of Service: Oct 11, 2020 Day#: 2 Progress Note SUBJECT: Terri is a 35-year-old 12 now Para 7-0-5-7 status post primary c/section with BTL, doing well postoperative day # 2. She has been ambulating, voiding spontaneously without issue and tolerating regular diet. Reports lochia is like a normal period. Patient is ambulating well. Reports increased gas pain, and difficulty managing her pain. States "I was hesitant to take the Percocet for a while." Currently comfortable and managing pain with Percocet and Motrin. Denies chest pain, SOB, difficulty breathing, headache, visual changes, epigastric pain, or nausea. She is formula feeding infant. Reports increased anxiety over "incision opening or messing something up inside." OBJECTIVE: VITAL SIGNS: Within normal limits, afebrile. Alert and oriented times three. Respirations regular, no accessory muscle use. Abdomen: Fundus firm at U-2. Soft, NTTP. Dressing dry and intact, no change in drainage on dressing. Extremities: Mild nonpitting edema in BLE, negative calf tenderness, negative clonus. Minimal lochia. ASSESSMENT: Postoperative Day 2 PLAN: 1. Percocet and Motrin for pain. 2. Encourage ambulation. 3. Nursing care per policy. 4. Discussed at length use of the abdominal binder, good body mechanics, no heavy lifting, and using good support of the abdomen for relief. Discussed at length signs of incisional infection and to contact the office if she has any concerns. VS, I&O, 24H, Fishbone Vital Signs/I&O Vital Signs Date Time Temp Pulse Resp B/P (MAP) Pulse Ox O2 Delivery O2 Flow Rate FiO2 10/11/20 08:54 20 10/11/20 08:03 Room Air 10/11/20 06:00 97.9 78 101/53 (91) 96 I&O- Last 24 Hours up to 6 AM 10/11/20 05:59 Output Total 450 ml Balance -450 ml ARVIN REYNAGA CNM Oct 11, 2020 09:19
[2020-10-11] MEDS ORDERED: IBUP80TA PO (13:41)
[2020-10-11] MEDS ORDERED: PERCOCET PO (13:41)
--- NOTE | 2020-10-11 13:51 | DS.PDOC ---
Discharge Summary General Date of Admission Oct 09, 2020 at 01:24 Date of Discharge 10/11/2020 Attending Physician: PENG ESPANA MD. Discharge Summary PROCEDURES PERFORMED DURING STAY: 1. Epidural 2. section. ADMITTING DIAGNOSES: 1. Labor. DISCHARGE DIAGNOSES: 1. Arrested dilation. COMPLICATIONS/CHIEF COMPLAINT: Labor Check. HISTORY OF PRESENT ILLNESS: Patient is a 39+ weeks in active labor her labor was augmented with Pitocin. She also had artificial rupture of membranes. She stated unchanged for several hours was diagnosed with arrest of dilation and underwent uncomplicated section. Patient did well postoperatively by post operative day #2 had met all discharge criteria and was discharged home in stable condition. DISCHARGE MEDICATIONS: Please see below. ALLERGIES: Please see below. PHYSICAL EXAMINATION ON DISCHARGE: VITAL SIGNS: Please see below. GENERAL: Well-appearing ABDOMINAL EXAMINATION: Soft for probably tender fundus firm below umbilicus. Incision was dressed NEUROLOGICAL EXAMINATION: Grossly intact LABORATORY DATA: Please see below. ACTIVITY: As tolerated. DIET: Regular DISCHARGE PLAN: Home DISCHARGE INSTRUCTIONS: 1. Remove dressing in 5-7 days. 2. Remain on pelvic rest for 6 weeks 3. Reports severe pain heavy vaginal bleeding fever or incisional issues. DISCHARGE CONDITION: Stable. Vital Signs/I&Os Vital Signs Date Time Temp Pulse Resp B/P (MAP) Pulse Ox O2 Delivery O2 Flow Rate FiO2 10/11/20 13:35 18 Room Air 10/11/20 06:00 97.9 78 101/53 (69) 96 I&O- Last 24 Hours up to 6 AM 10/11/20 06:00 Output Total 450 ml Balance -450 ml Discharge Medications Scheduled Calcium Carbonate (Tums) 200 Mg Tab.chew, 2 TAB PO QID for cough and congestion, (Reported) Ibuprofen (Ibuprofen) 800 Mg Tablet, 800 MG PO Q8H Prenat 115/Iron Fum/Folic/Dss ( 19 Tablet) 1 Each Tablet, 1 TAB PO DAILY, (Reported) Scheduled PRN Butalb/Acetaminophen/Caffeine (Esgic 50-325-40 mg Tablet) 1 Each Tablet, 1 TAB PO Q6HP PRN for MIGRAINE Oxycodone HCl/Acetaminophen (Oxycodone-Acetaminophen 5-325) 1 Each Tablet, 1 TAB PO QIDP PRN for pain Oxycodone/Acetaminophen (Oxycodone-Acetaminophen 5-325) 1 Each Tablet, 1-2 TAB PO Q6H PRN for SEVERE PAIN (PS 8-10) Miscellaneous Medications Acetaminophen (Mapap) 500 Mg Tablet, 1,000 MG PO, (Reported) Allergies Coded Allergies: No Known Allergies (Verified , 09/12/20) PENG ESPANA MD. Oct 11, 2020 13:51
[2020-10-14] MEDS ORDERED: OXYC1TAB23 PO (13:34)
== END 2020-10-11 16:15 | disposition home or self-care (01) | DRG 540 ==
LOC: M LDO 21:14 → M LDI 10-09 01:24 → M OBS 10-09 17:20
PROVIDERS: ADMIT Obstetrics & Gynecology; ATTEND Obstetrics & Gynecology
PROC: 10907ZC Drainage of Amniotic Fluid, Therapeutic from Products of Conception, Via Natural or Artificial Opening (ICD-10-PCS; 2020-10-09)
PROC: 0UB70ZZ Excision of Bilateral Fallopian Tubes, Open Approach (ICD-10-PCS; 2020-10-09)
PROC: 10D00Z1 Extraction of Products of Conception, Low, Open Approach (ICD-10-PCS; principal; 2020-10-09 14:34)
DX: O62.0 Primary inadequate contractions (principal); O46.93 Antepartum hemorrhage, unspecified, third trimester; Z3A.39 39 weeks gestation of pregnancy; Z37.0 Single live birth; Z30.2 Encounter for sterilization

== ENCOUNTER 2022-05-29 14:35 | Emergency (ER) | payer OTHER ==
[~2022-05-29] VITALS: Ht 167.6 cm; Wt 115.5 kg
[~2022-05-29 14:35] MED LIST changes: +OMEP-173 PO; -OMEP-218 PO; +OXYC1TAB23 PO; +PERCOCET PO
[2022-05-29 15:38] VITALS: O2SAT 99
[2022-05-29] MEDS ORDERED: ACETAMINOPHEN 500 MG TAB PO ONE (17:00)
[2022-05-29] MEDS ORDERED: KETOROLAC 30 MG/ML 1ML VIAL IV ONE (17:25)
[2022-05-29] MEDS ORDERED: NS 1,000 ML IV ONE (17:25)
[2022-05-29 19:06] VITALS: BP 148/70
== END 2022-05-29 19:07 | disposition home or self-care (01) ==
LOC: M ED 14:35
DX: U07.1 COVID-19 (principal); R51.9 Headache, unspecified; R52 Pain, unspecified
CPT/HCPCS: 96374; 99284; J1885

== ENCOUNTER 2022-07-10 13:32 | Emergency (ER) | payer OTHER ==
[~2022-07-10] VITALS: Ht 167.6 cm; Wt 123.7 kg
[2022-07-10 16:30] LABS: HEMATOCRIT 36.9 % (36.0-47.0); HEMOGLOBIN 12.6 g/dl (12.0-15.5); MEAN CORPUSCULAR HEMOGLOBIN 32.4 pg (27.0-33.0); MEAN CORPUSCULAR HGB CONC 34.1 g/dl (32.0-36.5); MEAN CORPUSCULAR VOLUME 94.9 fl (80.0-96.0); PLATELET COUNT, AUTOMATED 243 10^3/uL (150-450); RED BLOOD COUNT 3.89 10^6/uL (4.00-5.40); WHITE BLOOD COUNT 8.1 10^3/uL (4.0-10.0)
[2022-07-10 16:58] LABS: HCG, SERUM QUALITATIVE NEGATIVE (NEGATIVE)
[2022-07-10 17:06] LABS: BLOOD UREA NITROGEN 19 MG/DL (7-18); CALCIUM LEVEL 9.8 MG/DL (8.5-10.1); CARBON DIOXIDE LEVEL 26 MEQ/L (21-32); CHLORIDE LEVEL 109 MEQ/L (98-107); GLOMERULAR FILTRATION RATE > 60.0 (>60); GLUCOSE, FASTING 95 MG/DL (70-100); POTASSIUM SERUM 4.2 MEQ/L (3.5-5.1); SODIUM LEVEL 140 MEQ/L (136-145)
[2022-07-10] MEDS ORDERED: AMOX875T2 PO (18:13)
[2022-07-10 18:21] VITALS: BP 147/82
== END 2022-07-10 18:22 | disposition home or self-care (01) ==
LOC: M ED 13:32
DX: K11.20 Sialoadenitis, unspecified (principal); E66.9 Obesity, unspecified; F41.9 Anxiety disorder, unspecified; F31.9 Bipolar disorder, unspecified

== ENCOUNTER 2022-08-19 18:36 | Emergency (ER) | payer OTHER ==
[~2022-08-19] VITALS: Ht 167.6 cm; Wt 131.9 kg
[~2022-08-19 18:36] MED LIST changes: +AMOX875T2 PO
[2022-08-19] MEDS ORDERED: ACETAMINOPHEN 500 MG TAB PO ONE (23:05)
[2022-08-19 23:42] LABS: BASO % 0.1 % (0.0-1.0); EOS # 0.1 10^3/uL (0.0-0.5); HEMATOCRIT 35.9 % (36.0-47.0); LYMPH # 2.4 10^3/uL (1.5-5.0); LYMPH % 35.6 % (24.0-44.0); MEAN CORPUSCULAR HEMOGLOBIN 31.8 pg (27.0-33.0); MEAN CORPUSCULAR HGB CONC 33.4 g/dl (32.0-36.5); MEAN CORPUSCULAR VOLUME 95.2 fl (80.0-96.0); MONO # 0.3 10^3/uL (0.0-0.8); MONO % 5.1 % (2.0-8.0); NEUTROPHILS # 3.9 10^3/uL (1.5-8.5); NEUTROPHILS % 58.1 % (36.0-66.0); PLATELET COUNT, AUTOMATED 263 10^3/uL (150-450); RED BLOOD COUNT 3.77 10^6/uL (4.00-5.40); WHITE BLOOD COUNT 6.7 10^3/uL (4.0-10.0)
[2022-08-20 00:14] LABS: ALBUMIN 3.8 G/DL (3.2-5.2); ALKALINE PHOSPHATASE 74 U/L (46-116); ALT/SGPT 29 U/L (7.0-40); AST/SGOT 33 U/L (<34); BILIRUBIN,TOTAL 0.4 MG/DL (0.3-1.2); BLOOD UREA NITROGEN 18 MG/DL (9-23); CALCIUM LEVEL 9.9 MG/DL (8.5-10.1); CARBON DIOXIDE LEVEL 24 MMOL/L (20-31); CHLORIDE LEVEL 108 MMOL/L (98-107); CREATININE FOR GFR 0.79 MG/DL (0.55-1.30); GLOMERULAR FILTRATION RATE > 60.0 (>60); GLUCOSE, FASTING 101 MG/DL (60-100); POTASSIUM SERUM 3.9 MMOL/L (3.5-5.1); SODIUM LEVEL 141 MMOL/L (136-145); TOTAL PROTEIN 6.6 G/DL (5.7-8.2)
[2022-08-20 01:12] VITALS: BP 142/78
== END 2022-08-20 01:14 | disposition home or self-care (01) ==
LOC: M ED 18:36
DX: G24.5 Blepharospasm (principal); F41.9 Anxiety disorder, unspecified; F31.9 Bipolar disorder, unspecified; Z79.899 Other long term (current) drug therapy

== ENCOUNTER → 2022-10-08 | Outpatient (REF) | payer OTHER ==
[2022-10-08 16:53] LABS: ALBUMIN 3.8 G/DL (3.2-5.2); ALKALINE PHOSPHATASE 67 U/L (46-116); ALT/SGPT 23 U/L (7.0-40); AST/SGOT 23 U/L (<34); BILIRUBIN,TOTAL 0.4 MG/DL (0.3-1.2); BLOOD UREA NITROGEN 12 MG/DL (9-23); CALCIUM LEVEL 9.6 MG/DL (8.5-10.1); CARBON DIOXIDE LEVEL 26 MMOL/L (20-31); CHLORIDE LEVEL 108 MMOL/L (98-107); CHOLESTEROL LEVEL 115 MG/DL (<200); CHOLESTEROL RISK RATIO 2.91 (<5); GLOMERULAR FILTRATION RATE > 60.0 (>60); GLUCOSE, FASTING 85 MG/DL (60-100); HDL CHOLESTEROL 39.4 MG/DL (>40); NON-HDL-C 76 MG/DL; POTASSIUM SERUM 4.2 MMOL/L (3.5-5.1); SODIUM LEVEL 140 MMOL/L (136-145); TRIGLYCERIDES LEVEL 73 MG/DL (<150)
[2022-10-08 16:57] LABS: THYROID STIMULATING HORMONE 1.101 uIU/ML (0.55-4.78); TOTAL 25(OH) VITAMIN D 29.1 NG/ML (20.0-100.0)
[2022-10-08 16:58] LABS: FREE T4 1.08 NG/DL (0.89-1.76)
[2022-10-08 17:12] LABS: BASO % 0.2 % (0.0-1.0); EOS # 0.1 10^3/uL (0.0-0.5); EOS % 1.6 % (0.0-3.0); HEMATOCRIT 38.7 % (36.0-47.0); HEMOGLOBIN 12.5 g/dl (12.0-15.5); LYMPH # 1.3 10^3/uL (1.5-5.0); LYMPH % 24.9 % (24.0-44.0); MEAN CORPUSCULAR HEMOGLOBIN 31.6 pg (27.0-33.0); MEAN CORPUSCULAR HGB CONC 32.3 g/dl (32.0-36.5); MONO # 0.3 10^3/uL (0.0-0.8); MONO % 5.7 % (2.0-8.0); NEUTROPHILS # 3.4 10^3/uL (1.5-8.5); NEUTROPHILS % 67.2 % (36.0-66.0); PLATELET COUNT, AUTOMATED 255 10^3/uL (150-450); RED BLOOD COUNT 3.95 10^6/uL (4.00-5.40); WHITE BLOOD COUNT 5.1 10^3/uL (4.0-10.0)
[2022-10-08 17:59] LABS: HEMOGLOBIN A1c 4.6 % (4.0-6.0)
== END ==
LOC: M LAB REF 16:19
PROVIDERS: ATTEND Nurse Practitioner Family
DX: Z13.228 Encounter for screening for other metabolic disorders (principal); Z79.899 Other long term (current) drug therapy

== ENCOUNTER 2023-01-10 08:28 | Emergency (ER) | payer OTHER ==
[~2023-01-10] VITALS: Ht 167.6 cm; Wt 121.0 kg
[2023-01-10] MEDS ORDERED: CIPR500T39 (08:39)
[2023-01-10] MEDS ORDERED: NAPR-837 PO (10:44)
[2023-01-10 10:59] VITALS: BP 144/81
== END 2023-01-10 10:59 | disposition home or self-care (01) ==
LOC: M ED 08:28
DX: M65.271 Calcific tendinitis, right ankle and foot (principal); M77.31 Calcaneal spur, right foot

== ENCOUNTER 2023-07-08 15:02 | Emergency (ER) | payer OTHER ==
[~2023-07-08] VITALS: Ht 167.6 cm; Wt 121.7 kg
[~2023-07-08 15:02] MED LIST changes: +CIPR500T39
[2023-07-08] MEDS ORDERED: CEPH500C PO (17:59)
[2023-07-08 18:39] VITALS: BP 128/80; TEMP 98.5; O2SAT 99
== END 2023-07-08 18:43 | disposition home or self-care (01) ==
LOC: M ED 15:02
DX: L03.116 Cellulitis of left lower limb (principal); I83.93 Asymptomatic varicose veins of bilateral lower extremities

== ENCOUNTER → 2023-10-31 | Outpatient (CLI) | payer OTHER ==
[~2023-10-31] MED LIST changes: +CEPH500C PO
== END ==
LOC: M RAD 10-30 11:38
PROVIDERS: ATTEND Nurse Practitioner Family
DX: M25.562 Pain in left knee (principal)

== ENCOUNTER 2023-11-19 11:30 | Emergency (ER) | payer OTHER ==
[~2023-11-19] VITALS: Ht 167.6 cm; Wt 118.1 kg
[2023-11-19 11:31] VITALS: TEMP 98
[2023-11-19] MEDS ORDERED: PHEN15CA6 (12:06)
[2023-11-19] MEDS ORDERED: HYDR-3363 (12:06)
[2023-11-19] MEDS: methocarbamoL 750 MG TAB PO ONE (17:15)
[2023-11-19] MEDS: KETOROLAC 60MG 2ML VIAL IM ONE (17:16)
[2023-11-19] MEDS ORDERED: METH-1165 PO (18:27)
[2023-11-19 18:39] VITALS: BP 132/72; O2SAT 99
== END 2023-11-19 18:40 | disposition home or self-care (01) ==
LOC: M ED 11:30
DX: M23.92 Unspecified internal derangement of left knee (principal); M62.838 Other muscle spasm; M71.22 Synovial cyst of popliteal space [Baker], left knee
CPT/HCPCS: 93971; 96372; 99284; J1885

== ENCOUNTER 2024-05-02 19:19 | Emergency (ER) | payer OTHER ==
[~2024-05-02] VITALS: Ht 167.6 cm; Wt 98.8 kg
[~2024-05-02 19:19] MED LIST changes: +HYDR-3363; +METH-1165 PO; +PHEN15CA6
[2024-05-02] MEDS ORDERED: HYDR50TA70 (19:27)
[2024-05-02] MEDS: NS 1,000 ML IV ONE (21:00)
[2024-05-02 21:37] LABS: APPEARANCE, URINE CLEAR (CLEAR); BACTERIA, URINE AUTO NEGATIVE (NEGATIVE); BILIRUBIN, URINE AUTO NEGATIVE (NEGATIVE); BLOOD, URINE BLOOD NEGATIVE (NEGATIVE); COLOR, URINE STRAW (YELLOW); GLUCOSE, URINE (UA) AUTO NEGATIVE (NEGATIVE); KETONE, URINE AUTO NEGATIVE (NEGATIVE); LEUKOCYTE ESTERASE, URINE AUTO NEGATIVE (NEGATIVE); NITRITE, URINE AUTO NEGATIVE (NEGATIVE); PROTEIN, URINE AUTO NEGATIVE (NEGATIVE); RBC, URINE AUTO 0 /HPF (0-3); SPECIFIC GRAVITY URINE AUTO 1.004 (1.002-1.035); SQUAMOUS EPITHELIAL CELL UR AU 0 /HPF (0-6); UROBILINOGEN, URINE AUTO 0.2 mg/dL (0.0-2.0); WBC, URINE AUTO 0 /HPF (0-3)
[2024-05-02 21:42] LABS: BASO % 0.2 % (0.0-1.0); EOS # 0.1 10^3/uL (0.0-0.5); EOS % 0.8 % (0.0-3.0); HEMATOCRIT 38.8 % (36.0-47.0); HEMOGLOBIN 13.1 g/dl (12.0-15.5); LYMPH % 31.7 % (24.0-44.0); MEAN CORPUSCULAR HEMOGLOBIN 33.2 pg (27.0-33.0); MEAN CORPUSCULAR HGB CONC 33.8 g/dl (32.0-36.5); MEAN CORPUSCULAR VOLUME 98.2 fl (80.0-96.0); MONO # 0.3 10^3/uL (0.0-0.8); MONO % 5.1 % (2.0-8.0); NEUTROPHILS # 3.9 10^3/uL (1.5-8.5); PLATELET COUNT, AUTOMATED 260 10^3/uL (150-450); RED BLOOD COUNT 3.95 10^6/uL (4.00-5.40); WHITE BLOOD COUNT 6.2 10^3/uL (4.0-10.0)
[2024-05-02 21:54] LABS: AMPHETAMINES LEVEL URINE NEGATIVE (NEGATIVE); BARBITURATES URINE NEGATIVE (NEGATIVE); BENZODIAZEPINES URINE NEGATIVE (NEGATIVE); COCAINE METABOLITE URINE NEGATIVE (NEGATIVE); METHADONE URINE NEGATIVE (NEGATIVE); OPIATES URINE NEGATIVE (NEGATIVE); PHENCYCLIDINE URINE NEGATIVE (NEGATIVE)
[2024-05-02 21:55] LABS: CANNABINOIDS URINE NEGATIVE (NEGATIVE)
[2024-05-02 21:58] LABS: ALKALINE PHOSPHATASE 77 U/L (46-116); ALT/SGPT 19 U/L (7.0-40); AST/SGOT 12 U/L (<34); BILIRUBIN,DIRECT 0.1 MG/DL (<0.4); BILIRUBIN,TOTAL 0.3 MG/DL (0.3-1.2); BLOOD UREA NITROGEN 8 MG/DL (9-23); CALCIUM LEVEL 9.9 MG/DL (8.5-10.1); CARBON DIOXIDE LEVEL 28 MMOL/L (20-31); CHLORIDE LEVEL 112 MMOL/L (98-107); CREATININE FOR GFR 0.73 MG/DL (0.55-1.30); GLOMERULAR FILTRATION RATE > 60.0 (>60); GLUCOSE, FASTING 92 MG/DL (60-100); POTASSIUM SERUM 3.7 MMOL/L (3.5-5.1); SODIUM LEVEL 144 MMOL/L (136-145); TOTAL PROTEIN 6.8 G/DL (5.7-8.2)
[2024-05-02] MEDS: KETOROLAC 30 MG/ML 1ML VIAL IV ONE (22:15)
[2024-05-02 23:19] VITALS: BP 111/59; TEMP 97.8; O2SAT 98
== END 2024-05-02 23:46 | disposition home or self-care (01) ==
LOC: M ED 19:19
DX: J68.9 Unspecified respiratory condition due to chemicals, gases, fumes and vapors (principal); R51.9 Headache, unspecified; R00.2 Palpitations; F41.9 Anxiety disorder, unspecified; Z79.899 Other long term (current) drug therapy
CPT/HCPCS: 70450; 80048; 80076; 80307; 81001; 83735; 84439; 84443; 85025; 93005; 96361; 96374; 99284; J1885